=== PATIENT | male | born 1980 | race Caucasian/White ===

== ENCOUNTER 2021-01-11 06:02 | Emergency (ER) | payer OTHER, MEDICAID ==
[~2021-01-11] VITALS: Ht 170.2 cm; Wt 86.2 kg
[2021-01-11 06:02] VITALS: BP 129/84
[2021-01-11] MEDS ORDERED: KETOROLAC 60 MG/2 ML VIAL IM ONE (06:35)
[2021-01-11] MEDS ORDERED: BACITRACIN OINT 500 UNITS/GM PKT TP ONE (06:35)
[2021-01-11] MEDS ORDERED: IBUP-2213 PO (06:39)
[2021-01-11 07:05] VITALS: BP 129/84
== END 2021-01-11 07:05 | disposition home or self-care (01) ==
LOC: MED 06:02
DX: S90.821A Blister (nonthermal), right foot, initial encounter (principal); S90.822A Blister (nonthermal), left foot, initial encounter; F20.9 Schizophrenia, unspecified; Z79.899 Other long term (current) drug therapy; X58.XXXA Exposure to other specified factors, initial encounter; Y93.89 Activity, other specified; Y92.89 Other specified places as the place of occurrence of the external cause; Y99.8 Other external cause status
CPT/HCPCS: 96372; 99283; J1885